=== PATIENT | male | born 1985 | race Caucasian/White ===

== ENCOUNTER 2017-10-31 05:46 | Emergency (ER) | payer OTHER ==
[2017-10-31 06:00] VITALS: BP 138/80
--- NOTE | 2017-10-31 07:16 | ER Document Report ---
ED General - General Chief Complaint: Urinary Retention Stated Complaint: URINARY PROBLEM Time Seen by Provider: 10/31/17 07:14 Mode of Arrival: Ambulatory Information source: Patient TRAVEL OUTSIDE OF THE [place] IN LAST 30 DAYS: No - HPI Notes: 32-year-old male presents to the ED with complaints of a worm coming from his penile shaft yesterday, states his dog was diagnosed with hookworms at the vet yesterday, and he thinks he saw a worm coming from his penile shaft last night. Reports some pain on penile shaft and scrotum. States he has not been able to void since 7 PM last night. Denies any new medications, food or travel. Denies any rashes. Patient states he also found while he was going through some of his things a bottle from his girlfriend that when he looked it up treated STDs, cannot tell me the name of the medication. 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 Report is still pending on biopsy. Denies fevers, chills, chest pain, palpitations, shortness of breath, dyspnea, nausea, vomiting, diarrhea, abdominal pain, hematuria,blurred vision, double vision, loss of vision, speech changes, LH, dizziness, syncope, headaches, wheezing, ST, URI, neck pain, weakness, bowel or bladder dysfunction, saddle anesthesia, numbness or tingling in bilateral upper or lower extremities equally, muscle paralysis, weakness in bilateral upper or lower extremities equally or rash. - Related Data Allergies/Adverse Reactions: No Known Allergies Allergy (Verified 10/31/17 08:14) Past Medical History - General Information source: Patient - Social History Smoking Status: Unknown if Ever Smoked Family History: Reviewed & Not Pertinent Review of Systems - Review of Systems Constitutional: No symptoms reported EENT: No symptoms reported Cardiovascular: No symptoms reported Respiratory: No symptoms reported Gastrointestinal: No symptoms reported Genitourinary: See HPI Male Genitourinary: See HPI Musculoskeletal: No symptoms reported Skin: No symptoms reported Hematologic/Lymphatic: No symptoms reported Neurological/Psychological: Anxiety Physical Exam - Vital signs Vitals: Temp Pulse Resp BP Pulse Ox 98.5 F 113 H 16 138/80 H 99 10/31/17 05:57 10/31/17 05:57 10/31/17 05:57 10/31/17 05:57 10/31/17 05:57 - Notes Notes: PHYSICAL EXAMINATION: GENERAL: Well-appearing, well-nourished and in no acute distress. HEAD: Atraumatic, normocephalic. EYES: Pupils equal round and reactive to light, extraocular movements intact, sclera anicteric, conjunctiva are normal. ENT: Nares patent, oropharynx clear without exudates. Moist mucous membranes. NECK: Normal range of motion, supple without lymphadenopathy LUNGS: Breath sounds clear to auscultation bilaterally and equal. No wheezes rales or rhonchi. HEART: Regular rate and rhythm without murmurs ABDOMEN: Soft, nontender, nondistended abdomen. No guarding, no rebound. No masses appreciated. : Both testes descended, urethral meatus without erythema, induration or drainage. No lesions on penile shaft. No inguinal hernias bilaterally. Flor , RN at beside as chuck wagon cook. Musculoskeletal: Normal range of motion, no pitting or edema. No cyanosis. NEUROLOGICAL: Cranial nerves grossly intact. Normal speech, normal gait. Normal sensory, motor exams PSYCH: Normal mood, normal affect. SKIN: Warm, Dry, normal turgor, no rashes or lesions noted. Course - Re-evaluation Re-evalutation: 10/31/17 09:03 [id number]-old male who is afebrile vitals stable and in no distress. When this provider and nurse were in the room, patient patient states he had a requirement in his penile shaft because his daughter was diagnosed yesterday. States that he saw squiggly thing in his penile shaft last night. Patient states last night, he pulling at his penile shaft to try and "get the worm out" . Clinical exam was unremarkable, genital exam which was chaperoned by bedside RN was unremarkable for any lesions, deformities, noted erythema, testicular evaluation negative for masses or swelling. Patient was aggressively pulling at his penile shaft with this provider nurse in the room to again try to "get the room out". Pt reports he has penile shaft as well as testicular pain. due to patient having pain discussed with him we can order a testicular ultrasound to evaluate for any abnormalities agreed with that plan of care. Patient stated that he did remove a white thin "worm" last night, and this provider asked him if he had saved the specimen, patient continued to demonstrate pulling something from his mouth, this provider repeated the question, patient continued to demonstrate with both hands pulling something out of his mouth . The question was asked a third time in case pt did not hear, patient continued this behavior. This provider then asked him if he had engaged in any illicit drug use, patient denied this. Provider asked patient if he had slept last night, he states that he did. Patient also reported that due to pulling on his penile shaft, he had "multiple organisms throughout the night". Discussed with patient pulling on his penile shaft aggressively can cause urethral inflammation. Patient appeared to be very anxious, and almost acting like there was something else in the room. Patient states he had not urinated since 20 however prior to getting bladder, patient urinated on his own accord without issues. Quested that mental health, evaluate patient is due to and normal affect, appears to be extremely anxious. 1000-Urine drug screen shows that patient is positive for cocaine and methamphetamines and marijuana. Testicular ultrasound negative for torsion, varicocele or hydrocele, hernia, testicular mass, epididymitis, and any other acute etiologies. Did consult with mental health, Rocky, to evaluate patient at bedside. Patient does have a history of PTSD, last week ago. 1100-Pt remains afebrile vitals stable and in no distress. Chlamydia gonorrhea negative which patient wanted to stay for it. Still waiting on a stool sample, patient can do outpatient. Patient advised to follow-up with primary care provider. Discussed with patient the effects of drug abuse of cocaine and amphetamines with PTSD and TBI history. [facility] also given edema primary care provider. [facility]. Patient did also speak with mental health also gave him resources. I have reevaluated this patient multiple times and no significant life threatening changes, no signs of toxicity, sepsis or peritonitis are noted. The patient and I have discussed the diagnosis and risks, and we agree with discharging home and close follow-up. We also discussed returning to the Emergency Department immediately if new or worsening symptoms occur with the understanding that symptoms and presentations can change. At this time will discharge with return precautions and follow-up recommendations. Verbal discharge instructions given a the bedside and opportunity for questions given. We have discussed the symptoms which are most concerning (e.g., saddle anesthesia, urinary or bowel incontinence or retention, changing or worsening pain) that necessitate immediate return. Medication warnings reviewed. All questions and concerns answered by this provider. Patient is in agreement with this plan and has verbalized understanding of return precautions and the need for primary care follow-up in the next 24-72 hours. Patient verbalized understanding of plan of care and agree with plan of care. - Vital Signs Vital signs: Temp Pulse Resp BP Pulse Ox 98.5 F 113 H 16 138/80 H 99 10/31/17 05:57 10/31/17 05:57 10/31/17 05:57 10/31/17 05:57 10/31/17 05:57 - Laboratory Laboratory results interpreted by me: 10/31/17 08:55 Urine Blood SMALL H Discharge - Discharge Clinical Impression: Positive urine drug screen, Pain, penile Condition: Stable Disposition: HOME, SELF-CARE Instructions: Drug Screening ([facility]) Additional Instructions: Follow-up with primary care provider. Your scrotal ultrasound was negative for any acute findings. chlamydia and gonorrhea were negative. He did test positive for cocaine, methamphetamines as well as marijuana. Please follow-up with PCP. You can return stool to hospital once you complete the samples. Will call you with results. Return immediately for any new or worsening symptoms. Follow up with primary care provider, call tomorrow to make followup appointment. Referrals: SALTY PUENTE MD [COMMUNITY BASED STAFF] - Follow up as needed
[2017-10-31 09:47] LABS: URINE AMPHETAMINES SCREEN UNCONFIRMED POSITIVE; URINE BARBITURATES SCREEN NEGATIVE; URINE BENZODIAZEPINES SCREEN NEGATIVE; URINE COCAINE SCREEN UNCONFIRMED POSITIVE; URINE MARIJUANA (THC) SCREEN UNCONFIRMED POSITIVE; URINE METHADONE SCREEN NEGATIVE; URINE PHENCYCLIDINE SCREEN NEGATIVE
[2017-10-31 09:56] LABS: APPEARANCE,URINE CLEAR; BILIRUBIN,URINE NEGATIVE (NEGATIVE); COLOR,URINE YELLOW; GLUCOSE, URINE NEGATIVE (NEGATIVE); KETONES,URINE NEGATIVE (NEGATIVE); LEUKOCYTE ESTERASE,URINE NEGATIVE (NEGATIVE); NITRITE,URINE NEGATIVE (NEGATIVE); PROTEIN,URINE NEGATIVE (NEGATIVE); URINE SPECIFIC GRAVITY 1.009; UROBILINOGEN,URINE NEGATIVE mg/dL (<2.0)
[2017-10-31 10:47] LABS: CHLAM PCR NOT DETECTED (NOT DETECT); GON PCR NOT DETECTED (NOT DETECT)
--- NOTE | 2017-10-31 10:53 | RADIOLOGY REPORT (SQ) ---
EXAM DESCRIPTION: U/S SCROTUM W/DOPPLER COMPLETED DATE/TIME: 10/31/2017 10:43 am REASON FOR STUDY: tesicular pain COMPARISON: None. TECHNIQUE: Static and realtime vidales scale imaging of the scrotum and testes. Selected color Doppler and spectral images recorded to document blood flow. LIMITATIONS: None. FINDINGS: RIGHT: TESTICLE: Normal size. Normal echotexture. Normal blood flow. No mass. EPIDIDYMIS: Normal. HYDROCELE OR VARICOCELE: No. HERNIA OR EXTRA-TESTICULAR MASS: No. OTHER: No other significant finding. LEFT: TESTICLE: Normal size. Normal echotexture. Normal blood flow. No mass. EPIDIDYMIS: Normal. HYDROCELE OR VARICOCELE: No. HERNIA OR EXTRA-TESTICULAR MASS: No. OTHER: No other significant finding. IMPRESSION: NORMAL SCROTAL ULTRASOUND. NO EVIDENCE OF TESTICULAR MASS OR TORSION. TECHNICAL DOCUMENTATION: JOB ID: [id number] [employer]- All Rights Reserved Reading location - IP/workstation name: [email or web address]
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
== END 2017-10-31 13:12 | disposition home or self-care (01) ==
LOC: ER 05:46
DX: F14.10 Cocaine abuse, uncomplicated (principal); F15.10 Other stimulant abuse, uncomplicated; N48.89 Other specified disorders of penis; R33.9 Retention of urine, unspecified
CPT/HCPCS: 76870; 80307; 81001; 87070; 87177; 87205; 87491; 87591; 89055; 93976; 99285

== ENCOUNTER 2018-06-03 17:51 | Emergency (ER) | payer OTHER ==
[2018-06-03 18:45] VITALS: BP 110/61
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
== END 2018-06-03 20:18 | disposition home or self-care (01) ==
LOC: ER 17:51
DX: M79.642 Pain in left hand (principal); F17.200 Nicotine dependence, unspecified, uncomplicated
CPT/HCPCS: 99283

== ENCOUNTER 2018-08-20 16:23 | Emergency (ER) | payer OTHER ==
[2018-08-20] MEDS ORDERED: NORMAL SALINE 1000 ML 1,000 ML IV ONE ×2 (16:31→17:48)
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
[2018-08-20 17:09] LABS: ABSOLUTE BASOPHILS # (AUTO) 0.1 10^3/uL (0.0-0.2); ABSOLUTE EOSINOPHILS # (AUTO) 0.1 10^3/uL (0.0-0.6); ABSOLUTE LYMPHOCYTES (AUTO) 1.3 10^3/uL (0.5-4.7); ABSOLUTE MONOCYTES (AUTO) 1.4 10^3/uL (0.1-1.4); ABSOLUTE NEUT (AUTO) 14.3 10^3/uL (1.7-8.2); BASOPHILS % (AUTO) 0.6 % (0-2); EOSINOPHILS % (AUTO) 0.6 % (0-6); HEMATOCRIT 43.1 % (37.9-51.0); HEMOGLOBIN 14.6 g/dL (13.5-17.0); LYMPHOCYTES % (AUTO) 7.6 % (13-45); MEAN CORPUSCULAR HEMOGLOBIN 32.6 pg (27.0-33.4); MEAN CORPUSCULAR HGB CONC 33.9 g/dL (32.0-36.0); MEAN CORPUSCULAR VOLUME 96 fl (80-97); MONOCYTES % (AUTO) 8.1 % (3-13); PLATELET COUNT 274 10^3/uL (150-450); RED BLOOD COUNT 4.48 10^6/uL (4.35-5.55); RED CELL DISTRIBUTION WIDTH 13.3 % (11.5-14.0); SEGMENTED NEUTROPHILS % (AUTO) 83.1 % (42-78); TOTAL CELLS COUNTED % (AUTO) 100 %; WHITE BLOOD COUNT 17.2 10^3/uL (4.0-10.5)
[2018-08-20 17:31] LABS: ACETAMINOPHEN < 10 ug/mL (10-30); ALANINE AMINOTRANSFERASE 31 U/L (21-72); ALCOHOL < 10 mg/dL (NONE DETECTED); ALKALINE PHOSPHATASE 60 U/L (38-126); ANION GAP 15 (5-19); ASPARTATE AMINO TRANSFERASE 54 U/L (17-59); BILIRUBIN,DIRECT 0.4 mg/dL (0.0-0.4); BLOOD UREA NITROGEN 24 mg/dL (7-20); CALCIUM 10.6 mg/dL (8.4-10.2); CARBON DIOXIDE 23 mmol/L (22-30); CHLORIDE 104 mmol/L (98-107); CREATINE KINASE 1243 U/L (55-170); GLUCOSE 85 mg/dL (75-110); POTASSIUM 4.1 mmol/L (3.6-5.0); SALICYLATE < 1.0 mg/dL (2.0-20.0); SODIUM 142.4 mmol/L (137-145)
--- NOTE | 2018-08-20 17:49 | RADIOLOGY REPORT (SQ) ---
EXAM DESCRIPTION: CT HEAD WITHOUT COMPLETED DATE/TIME: 08/20/2018 5:39 pm REASON FOR STUDY: 1, attempted hanging COMPARISON: None. TECHNIQUE: Axial images acquired through the brain without intravenous contrast. Images reviewed wi th bone, brain and subdural windows. Additional sagittal and coronal reconstructions were generated. Images stored on PACS. All CT scanners at this facility use dose modulation, iterative reconstruction, and/or weight based d osing when appropriate to reduce radiation dose to as low as reasonably achievable (ALARA). [facility]: Dose Right [facility]: CareDose [facility]: Dose Right [facility]: Teradose 4D [facility]: Smart [employer] RADIATION DOSE: CT Rad equipment meets quality standard of care and radiation dose reduction techniq ues were employed. CTDIvol: 53.2 mGy. DLP: 1017 mGy-cm. mGy. LIMITATIONS: None. FINDINGS: VENTRICLES: Normal size and contour. CEREBRUM: No masses. No hemorrhage. No midline shift. No evidence for acute infarction. Query subt le, diffuse hypodensity of the bilateral cerebral hemispheres. CEREBELLUM: No masses. No hemorrhage. No alteration of density. No evidence for acute infarction. EXTRAAXIAL SPACES: No fluid collections. No masses. ORBITS AND GLOBE: No intra- or extraconal masses. Normal contour of globe without masses. CALVARIUM: No fracture. PARANASAL SINUSES: No fluid or mucosal thickening. SOFT TISSUES: No mass or hematoma. OTHER: No other significant finding. IMPRESSION: There is no definite acute intracranial pathology. Query subtle, diffuse hypodensity of the bilateral cerebral hemispheres, which can be seen in anoxic injury given the stated clinical set ting of attempted hanging; this degree of diffuse injury if present would be overt on neurologic exam ination. EVIDENCE OF ACUTE STROKE: NO. COMMENT: Quality ID # [id number]: Final reports with documentation of one or more dose reduction techniques (e.g., Automated exposure control, adjustment of the mA and/or kV according to patient size, use of iterative reconstruction technique) TECHNICAL DOCUMENTATION: JOB ID: [id number] [employer]- All Rights Reserved Reading location - IP/workstation name: [email or web address]
--- NOTE | 2018-08-20 17:50 | RADIOLOGY REPORT (SQ) ---
EXAM DESCRIPTION: CT SOFT TISSUE NECK WITH COMPLETED DATE/TIME: 08/20/2018 5:39 pm REASON FOR STUDY: 1; hanging attempt COMPARISON: None. TECHNIQUE: Post IV contrasted scanning from skull base through lung apices with review of bone, soft tissue and lung windows. Reconstructed coronal and sagittal MPR images reviewed. All images stored on PACS. All CT scanners at this facility use dose modulation, iterative reconstruction, and/or weight based d osing when appropriate to reduce radiation dose to as low as reasonably achievable (ALARA). [facility]: Dose Right [facility]: CareDose [facility]: Dose Right [facility]: Teradose 4D [facility]: Smart [employer] CONTRAST TYPE AND DOSE: Contrast type and dose not recorded here. Refer to remote sensing technologist notes. RENAL FUNCTION: None required. The patient is less than 50 years old. RADIATION DOSE: CT Rad equipment meets quality standard of care and radiation dose reduction techniq ues were employed. CTDIvol: 11.8 mGy. DLP: 318 mGy-cm. . LIMITATIONS: None. FINDINGS: SKULL BASE: Intact. MAJOR SALIVARY GLANDS: No solid or cystic masses. No inflammatory changes. LYMPHADENOPATHY: No adenopathy. MUCOSAL MASSES OR ASYMMETRY: No mucosal masses or asymmetry. LARYNX/CORDS: No abnormal findings. VASCULAR STRUCTURES: The major vessels are patent. LUNG APICES: Clear. BONES: The hyoid bone is intact. No cervical spine fracture is seen. There is no malalignment. Dis c spaces are maintained. THYROID: Normal size. No masses. PARANASAL SINUSES: Clear. OTHER: No other significant finding. IMPRESSION: NO SIGNIFICANT FINDING IN THE SOFT TISSUES OF THE NECK. TECHNICAL DOCUMENTATION: JOB ID: [id number] Quality ID # [id number]: Final reports with documentation of one or more dose reduction techniques (e.g., Au tomated exposure control, adjustment of the mA and/or kV according to patient size, use of iterative reconstruction technique) 2010 [employer]- All Rights Reserved Reading location - IP/workstation name: [email or web address]
[2018-08-20] MEDS ORDERED: NORMAL SALINE 1000 ML 1,000 ML IV PRN (17:52)
[2018-08-20] MEDS: CEPHALEXIN 500 MG CAPSULE PO SCH (18:03)
--- NOTE | 2018-08-21 07:41 | EKG REPORT ---
SEVERITY:- NORMAL ECG - SINUS RHYTHM : Confirmed by: Tayler Sy MD 21-Aug-2018 07:40:46
[2018-08-21 08:15] LABS: APPEARANCE,URINE CLEAR; BILIRUBIN,URINE NEGATIVE (NEGATIVE); COLOR,URINE YELLOW; GLUCOSE, URINE NEGATIVE (NEGATIVE); KETONES,URINE TRACE mg/dL (NEGATIVE); LEUKOCYTE ESTERASE,URINE NEGATIVE (NEGATIVE); NITRITE,URINE NEGATIVE (NEGATIVE); PROTEIN,URINE NEGATIVE (NEGATIVE); URINE SPECIFIC GRAVITY 1.029; UROBILINOGEN,URINE NEGATIVE mg/dL (<2.0)
[2018-08-21 08:23] LABS: ANION GAP 8 (5-19); BLOOD UREA NITROGEN 16 mg/dL (7-20); CALCIUM 8.8 mg/dL (8.4-10.2); CARBON DIOXIDE 24 mmol/L (22-30); CHLORIDE 108 mmol/L (98-107); CREATINE KINASE 1295 U/L (55-170); GLUCOSE 89 mg/dL (75-110); SODIUM 140.2 mmol/L (137-145)
[2018-08-21 08:29] LABS: URINE AMPHETAMINES SCREEN UNCONFIRMED POSITIVE; URINE BARBITURATES SCREEN NEGATIVE; URINE BENZODIAZEPINES SCREEN NEGATIVE; URINE COCAINE SCREEN UNCONFIRMED POSITIVE; URINE MARIJUANA (THC) SCREEN UNCONFIRMED POSITIVE; URINE METHADONE SCREEN NEGATIVE; URINE PHENCYCLIDINE SCREEN NEGATIVE
--- NOTE | 2018-08-21 09:13 | ER Document Report ---
Doctor's Note Notes: 08/21/18 09:13 33-year-old male who presented after an attempted hanging. Patient had an elevated creatinine and CK initially. Fluids have been provided with a repeat creatinine as recorded. The total CK has not gone up appreciably. Patient is clear for psychiatric evaluation.
[2018-08-21] MEDS: CEPHALEXIN 500 MG CAPSULE PO SCH ×3 (09:26→17:09)
[2018-08-21] MEDS ORDERED: NICOTINE 21 MG/24 HR PATCH.TD24 TD ONE (11:05)
[2018-08-21] MEDS ORDERED: NORMAL SALINE 1000 ML 1,000 ML IV ONE (11:06)
[2018-08-21] MEDS: SERTRALINE HCL 50 MG TABLET PO SCH (13:30)
[2018-08-21] MEDS: BUPROPION HCL 75 MG TABLET PO SCH (13:30)
[2018-08-21] MEDS: OLANZAPINE 2.5 MG TABLET PO SCH ×2 (13:30→17:09)
--- NOTE | 2018-08-21 16:28 | PSYCHOLOGICAL NOTE ---
Psych Note - Psych Note Date seen by psych provider: 08/21/18 Psych Note: Diagnosis: SI with attempt via hanging PTSD by History TBI by History Medication recommendations made by the psychiatric medical provider, Dr. Larry MD., includes: Decrease Zoloft to 50MG daily for 7 days then discontinue Decrease Wellbutrin to 75MG daily for 7 days then discontinue Discontinue Adderall 15MG twice a day Discontinue Benadrul 50MG at night Add Zyprexa 2.5MG twice a day for mood stabilization/impulse control Impression/Plan: Recommendation to complete full IVC (patient was a 24 Hour IVC Petition). He had SI attempt via hanging and reported steps he took. He endorsed hopelessness, worthlessness and helplessness. He noted his honorable medical discharge took his purpose for living away. He continued to endorse SI and said he didn't want to live anymore. He presented depressed with flat affect. Consulted with Dr. Sexton regarding the management and care of patient. ED Physician in agreement with recommendations.
[2018-08-22 07:01] LABS: ABSOLUTE BASOPHILS # (AUTO) 0.1 10^3/uL (0.0-0.2); ABSOLUTE EOSINOPHILS # (AUTO) 0.3 10^3/uL (0.0-0.6); ABSOLUTE LYMPHOCYTES (AUTO) 2.4 10^3/uL (0.5-4.7); ABSOLUTE MONOCYTES (AUTO) 0.6 10^3/uL (0.1-1.4); ABSOLUTE NEUT (AUTO) 1.6 10^3/uL (1.7-8.2); BASOPHILS % (AUTO) 1.5 % (0-2); EOSINOPHILS % (AUTO) 5.5 % (0-6); HEMATOCRIT 38.2 % (37.9-51.0); HEMOGLOBIN 12.8 g/dL (13.5-17.0); LYMPHOCYTES % (AUTO) 48.4 % (13-45); MEAN CORPUSCULAR HEMOGLOBIN 32.7 pg (27.0-33.4); MEAN CORPUSCULAR HGB CONC 33.5 g/dL (32.0-36.0); MEAN CORPUSCULAR VOLUME 98 fl (80-97); MONOCYTES % (AUTO) 11.8 % (3-13); PLATELET COUNT 213 10^3/uL (150-450); RED BLOOD COUNT 3.91 10^6/uL (4.35-5.55); RED CELL DISTRIBUTION WIDTH 13.6 % (11.5-14.0); SEGMENTED NEUTROPHILS % (AUTO) 32.8 % (42-78); TOTAL CELLS COUNTED % (AUTO) 100 %; WHITE BLOOD COUNT 4.9 10^3/uL (4.0-10.5)
[2018-08-22 07:11] LABS: ALANINE AMINOTRANSFERASE 30 U/L (21-72); ALBUMIN 3.6 g/dL (3.5-5.0); ALKALINE PHOSPHATASE 36 U/L (38-126); ANION GAP 5 (5-19); ASPARTATE AMINO TRANSFERASE 37 U/L (17-59); BILIRUBIN,DIRECT 0.1 mg/dL (0.0-0.4); BILIRUBIN,TOTAL 0.6 mg/dL (0.2-1.3); BLOOD UREA NITROGEN 12 mg/dL (7-20); CALCIUM 9.3 mg/dL (8.4-10.2); CARBON DIOXIDE 28 mmol/L (22-30); CHLORIDE 110 mmol/L (98-107); CREATINE KINASE 614 U/L (55-170); GLUCOSE 90 mg/dL (75-110); POTASSIUM 4.9 mmol/L (3.6-5.0); SODIUM 142.5 mmol/L (137-145); TOTAL PROTEIN 6.2 g/dL (6.3-8.2)
--- NOTE | 2018-08-22 10:03 | ER Document Report ---
Doctor's Note Notes: 08/22/18 09:50 Patient seen and examined. He was staying here in the hospital after an attempt to hang himself. This morning he states his neck feels sore. He continues to endorse suicidal thoughts and ideations. He [facility] [place] [facility]. He denies any other acute complaints or concerns. Has no questions regarding his transfer. Physical exam reveals no obvious signs of trauma to the neck. He does have some mild tenderness to palpation over anterior sternocleidomastoid muscles. Heart is regular rate and rhythm, lungs are clear to auscultation bilaterally. Skin is warm and dry. Patient's affect is still depressed, he has diminished eye contact. Plan is to transfer the [place], awaiting police escort.
[2018-08-22] MEDS: BUPROPION HCL 75 MG TABLET PO SCH (10:08)
[2018-08-22] MEDS: CEPHALEXIN 500 MG CAPSULE PO SCH ×2 (10:08→14:35)
[2018-08-22] MEDS: SERTRALINE HCL 50 MG TABLET PO SCH (10:08)
[2018-08-22] MEDS: OLANZAPINE 2.5 MG TABLET PO SCH (10:08)
[2018-08-22 14:53] VITALS: BP 124/70
== END 2018-08-22 14:53 ==
LOC: ER 16:23
DX: T71.164A Asphyxiation due to hanging, undetermined, initial encounter (principal); S40.812A Abrasion of left upper arm, initial encounter; S40.811A Abrasion of right upper arm, initial encounter; S80.812A Abrasion, left lower leg, initial encounter; S80.811A Abrasion, right lower leg, initial encounter; N17.9 Acute kidney failure, unspecified; X58.XXXA Exposure to other specified factors, initial encounter; R45.851 Suicidal ideations; F43.10 Post-traumatic stress disorder, unspecified
CPT/HCPCS: 93005; 99291; 96360; 96361; 36415; 80307 ×4; 82550; 85025; 80048; 80053; 81001; 70450; 70491; 93010; J3490 ×2; J7030 ×2

== ENCOUNTER 2018-09-28 17:13 | Emergency (ER) | payer OTHER ==
[2018-09-28 17:48] VITALS: BP 125/72
--- NOTE | 2018-09-28 18:53 | RADIOLOGY REPORT (SQ) ---
EXAM DESCRIPTION: HAND RIGHT 3 VIEWS COMPLETED DATE/TIME: 09/28/2018 6:38 pm REASON FOR STUDY: bone tenderness COMPARISON: None. EXAM PARAMETERS: NUMBER OF VIEWS: Three views. TECHNIQUE: AP, lateral and oblique radiographic images acquired of the right hand. LIMITATIONS: None. FINDINGS: MINERALIZATION: Normal. BONES: No acute fracture or dislocation. No worrisome bone lesions. JOINTS: No effusions. SOFT TISSUES: No soft tissue swelling. No foreign body. OTHER: No other significant finding. IMPRESSION: NEGATIVE STUDY OF THE RIGHT HAND. NO RADIOGRAPHIC EVIDENCE OF ACUTE INJURY. TECHNICAL DOCUMENTATION: JOB ID: [id number] [employer]- All Rights Reserved Reading location - IP/workstation name: [email or web address]
--- NOTE | 2018-09-28 19:06 | ER Document Report ---
HPI - HPI Patient complains to provider of: right hand pain after punching a punching bag Time Seen by Provider: 09/28/18 19:04 Onset/Duration: Sudden, Persistent Quality of pain: Achy Severity: Mild Pain Level: 3 Context: 33 yr old male pt, with the listed pmh, here for right hand pain x 8 days after punching a punching bag. he is right handed. no surgeries on this hand. no numbness,weakness or tingling. otc meds helping some. hasn't sought care until now. no pain anywhere else. pt able to walk. denies intoxication. pain worse with movement and palpation. better with rest. no other fall or trauma or associated sx Exacerbated by: Movement Relieved by: Remaining still - ROS Systems Reviewed and Negative: Yes All other systems reviewed and negative - to include 10, unless mentioned in the hpi Past Medical History - General Information source: Patient - Social History Smoking Status: Unknown if Ever Smoked Frequency of alcohol use: unknown Drug Abuse: Other - unknown Family History: Reviewed & Not Pertinent Patient has suicidal ideation: No Patient has homicidal ideation: No Renal/ Medical History: Denies: Hx Peritoneal Dialysis Psychiatric Medical History: Reports: Hx Anxiety, Hx Depression Vertical Provider Document - CONSTITUTIONAL Notes: GENERAL_APPEARANCE: alert and oriented x 3, mood and affect wnl, cooperative, mild obvious discomfort. Pleasant, young white male, smiling, speaking in full sentences, in no sign of pain or resp distress, easily sitting up, adult female partner at bedside VITALS: reviewed, see vital signs table. HEAD: no_swelling\tenderness on the head, normocephalic, atraumatic NECK: supple, no_neck_tenderness. full rom and full strength. HEART: RRR LUNGS: CTAB, good air exchange diffusely BACK: no_back_tenderness EXTREMITIES: good pulse in all extremities, right hand: has no erythema, mild swelling, mild ecchymosis/tenderness over the 4th and 5th proximal phalanges and 4th and 5th distal metacarpals, and no_abrasions\lacerations other than as noted. Full rom and full strength. Normal gait. 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 neg kanavel sign. no sign of tendon or nerve involvement. brisk cap refill. no other shortening or rotation of the limb or obvious deformities to suggest trauma unless otherwise noted. no other swelling or ttp. SKIN: warm, dry, good_color. no rash. no other grossly visible overlying skin changes to suggest trauma NEURO: cerebellar function intact, motor_intact and sensory_intact in injured_extremity. cranial nerves 2-12 intact - INFECTION CONTROL TRAVEL OUTSIDE OF THE [place] IN LAST 30 DAYS: No Course - Re-evaluation Re-evalutation: 09/28/18 19:31 pt here for right hand pain after punching a punching bag. he does have some swelling, ttp, and ecchymosis to the ulnar aspect of the hand. his right hand xr was neg per rad and reviewed by myself. secondary to the pts sx and pe i did place him in an ulnar gutter splint to wear for comfort for the next few days or until seen by pcp/ortho. motor and sensation intact post splint checked by myself. he is on mult psych meds so advised only tylenol for pain secondary to likely medication interactions. rice therapy. advised to f/u with pcp/ortho in 1-2 days. return for any worsening symptoms. vss. well appearing. satting well on ra. neurononfocal. pt understands and agrees to plan. he didn't want anything here for pain. On reexam, pt remained stable. nontoxic. well appearing. pain controlled. tolerating po. requesting to go home. Documentation achieved through voice recording which my lead to some occasional accidental typographical errors. Extensive efforts have been made to proof read documentation to make sure these are the least as possible. According to the [place] drug database he gets monthly Adderall, he also got Percocet 10mg back in September 2017 with along with Valium and oxycodone 5mg in 2016 but no other narcotics recently. Category Date Time Status Immobilize Extrem/Crutch (ED) NOW Care 09/28/18 19:24 Completed Right Hand [HAND RIGHT 3 VIEWS] [RAD] Stat Exams 09/28/18 Completed - Vital Signs Vital signs: Temp Pulse Resp BP Pulse Ox 98.7 F 58 L 16 125/72 99 09/28/18 17:46 09/28/18 17:46 09/28/18 17:46 09/28/18 17:46 09/28/18 17:46 - Diagnostic Test Radiology reviewed: Image reviewed, Reports reviewed Radiology results interpreted by me: 09/28/18 19:05 Hand X-Ray 09/28/18 00:00 IMPRESSION: NEGATIVE STUDY OF THE RIGHT HAND. NO RADIOGRAPHIC EVIDENCE OF ACUTE INJURY. Discharge - Discharge Clinical Impression: Contusion of right hand Qualifiers: Encounter type: initial encounter Qualified Code(s): S60.221A - Contusion of right hand, initial encounter Sprain of right hand Qualifiers: Encounter type: initial encounter Qualified Code(s): S63.91XA - Sprain of unspecified part of right wrist and hand, initial encounter Condition: Good Disposition: HOME, SELF-CARE Instructions: Contusion ([facility]), Sprain ([facility]) Additional Instructions: Follow-up with PCP/ortho 1 to 2 days. Return for any worsening symptoms. Ice to the area. Wear the splint as needed for comfort for the next few days or until seen by PCP/Ortho. tylenol for any pain. [facility]errals: [facility] [[facility]] - Follow up as needed
== END 2018-09-28 20:08 | disposition home or self-care (01) ==
LOC: ER 17:13
DX: S63.91XA Sprain of unspecified part of right wrist and hand, initial encounter (principal); M79.641 Pain in right hand; W21.89XA Striking against or struck by other sports equipment, initial encounter; Y92.59 Other trade areas as the place of occurrence of the external cause; Z79.899 Other long term (current) drug therapy
CPT/HCPCS: 99283

== ENCOUNTER 2019-05-09 16:21 | Emergency (ER) | payer OTHER ==
--- NOTE | 2019-05-09 17:16 | ER Document Report ---
HPI - HPI Time Seen by Provider: 05/09/19 17:07 Pain Level: 2 Notes: Patient is a 34-year-old male with no significant past medical history and immunizations reported to be up-to-date including tetanus a couple years ago who presents complaining of laceration to his right posterior index finger at the PIP joint by a clean pocket knife prior to arrival. Patient states that he is still able to move his finger without difficulty. Bleeding has been well controlled. Denies drug allergies. Denies any headache, fever, neck pain, URI, sore throat, chest pain, palpitations, syncope, cough, shortness of breath, wheeze, dyspnea, abdominal pain, nausea/vomiting/diarrhea, urinary retention, dysuria, hematuria, numbness/tingling, muscle paralysis/weakness, or rash. - ROS Systems Reviewed and Negative: Yes All other systems reviewed and negative - REPRODUCTIVE Reproductive: DENIES: : Past Medical History - Social History Smoking Status: Current Every Day Smoker Frequency of alcohol use: None Drug Abuse: Marijuana Family History: Reviewed & Not Pertinent Patient has suicidal ideation: No Patient has homicidal ideation: No Renal/ Medical History: Denies: Hx Peritoneal Dialysis Psychiatric Medical History: Reports: Hx Anxiety, Hx Depression Vertical Provider Document - CONSTITUTIONAL Agree With Documented VS: Yes Notes: PHYSICAL EXAMINATION: GENERAL: Well-appearing, well-nourished and in no acute distress. HEAD: Atraumatic, normocephalic. NECK: Normal range of motion, supple without lymphadenopathy. No midline tenderness. LUNGS: Breath sounds clear to auscultation bilaterally and equal. No wheezes rales or rhonchi. HEART: Regular rate and rhythm without murmurs, rubs, gallops. Musculoskeletal: Rt hand: + 1.5cm superficial linear laceration posterior PIP jt 2nd finger. No erythema, warmth, ecchymosis, deformity, or swelling noted. N/V intact distal. FROM to passive/active. 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 No other bony tenderness. Extremities: No cyanosis, clubbing, or edema b/l. Peripheral pulses 2+. Capillary refill less than 3 seconds. NEUROLOGICAL: Normal speech, normal gait. Normal sensory, motor exams otherwise unremarkable PSYCH: Normal mood, normal affect. SKIN: see above. No rash - INFECTION CONTROL TRAVEL OUTSIDE OF THE [place] IN LAST 30 DAYS: No Course - Re-evaluation Re-evalutation: 05/09/19 Patient is an afebrile, well-hydrated, 34-year-old male who presents to the ED with a laceration to his right 2nd finger. Vitals are acceptable. PE is otherwise unremarkable for any neurovascular compromise, obvious tendon/ligament rupture, obvious fracture/dislocation, septic joint. Patient is nontoxic- appearing and is tolerating p.o. without difficulties. Wound was thoroughly irrigated and cleansed. Wound edges were approximated appropriately utilizing 3 simple interrupted sutures. Wound dressing/splint was placed and wound instructions reviewed. Pt did have a brief vasovagal episode when he felt the needle/pulling sensation of sutures, recovered immediately w/o complication and zofran was provided. No further labs or imaging warranted. Sutures will need removed in 10 days. Recheck with your PCM in 2-3 days. Consider consult orthopedics if needed. Return to the ED with any worsening/concerning symptoms otherwise as reviewed in discharge. Patient is in agreement. - Vital Signs Vital signs: Temp Pulse Resp BP Pulse Ox 98.5 F 63 16 122/66 98 05/09/19 16:47 05/09/19 16:47 05/09/19 16:47 05/09/19 16:47 05/09/19 16:47 Procedures - Laceration/Wound Repair Right Finger 2nd digit Wound length (cm): 1.5 Wound's Depth, Shape: Superficial, Linear Laceration pre-procedure: Sterile PPE donned, Sterile drapes applied, Other - chlorhexadine/saline Wound explored: Clean, No foreign body removed Wound Repaired With: Sutures Suture Size/Type: 4:0, Ethilon Number of Sutures: 3 Layer Closure?: No Post-procedure wound care: Sterile dressing applied, Splint applied Post-procedure NV exam normal: Yes Complications: No Discharge - Discharge Clinical Impression: Laceration of right index finger Qualifiers: Encounter type: initial encounter Damage to nail status: without damage Foreign body presence: without foreign body Qualified Code(s): S61.210A - Laceration without foreign body of right index finger without damage to nail, initial encounter Condition: Stable Disposition: HOME, SELF-CARE Instructions: Antibiotic Ointment Protection ([facility]), Soap Cleansing ([facility]) Additional Instructions: Do not shower or bathe for 24 hours. After 24 hours you may shower but no submersion of the wound under water. Keep the original dressing on the wound for 24 hours unless the drainage soaks through. Change the dressing daily thereafter and keep the knots of the suture material clean from any dried discharge. You may leave the wound open to the air once there is no more discharge. Return to the ED and/or your PCM in 2-3 days for a recheck. Monitor for any signs of worsening pain or redness, purulent drainage, streaks, and/or fever. Return to the ED if noticing any of the above symptoms or as needed. Take medications as directed. Your sutures will need to be removed in 10 days. Prescriptions: Amoxicillin/Potassium Clav [Augmentin 875-125 Tablet] 1 tab PO BID #10 tab Referrals: [facility] [[facility]] - Follow up as needed [facility] [Provider Group] - Follow up as needed
[2019-05-09] MEDS ORDERED: AMMONIA INHALANTS 10 AMPUL/BOX IH ONE (17:36)
[2019-05-09] MEDS ORDERED: ONDANSETRON 4 MG TAB.RAPDIS PO ONE (17:41)
[2019-05-09] MEDS ORDERED: ONDANSETRON 4 MG TAB.RAPDIS ONE (17:43)
[2019-05-09 17:54] VITALS: BP 116/71
== END 2019-05-09 18:00 | disposition home or self-care (01) ==
LOC: ER 16:21
DX: S61.210A Laceration without foreign body of right index finger without damage to nail, initial encounter (principal); W26.0XXA Contact with knife, initial encounter; F17.200 Nicotine dependence, unspecified, uncomplicated; F12.10 Cannabis abuse, uncomplicated
CPT/HCPCS: 12001; 99282; J3490; S0119